=== PATIENT | male | born 1940 | race Caucasian/White ===

== ENCOUNTER 2019-06-18 11:46 | Observation (INO) ==
[2019-06-18 12:04] LABS: Hemoglobin 13.7 g/dL (12.9-16.9); Mean Corpuscular HGB Conc 31.1 g/dL (31.6-35.5); Mean Corpuscular Hemoglobin 24.5 pg (28.0-33.3); Mean Corpuscular Volume 78.6 fL (83.0-100.0); Mean Platelet Volume 10.6 fL (9.4-12.4); Platelet Count 294 K/mcL (140-400); Red Cell Distribution Width 17.7 % (11.5-14.5); White Blood Count 7.9 K/mcL (4.3-11.1)
[2019-06-18 12:23] LABS: Alanine Aminotransferase 17 Units/L (7-52); Albumin/Globulin Ratio 1.3 (1.1-2.2); Alkaline Phosphatase 71 Units/L (34-104); Aspartate Amino Transferase 22 Units/L (13-39); BUN/Creatinine Ratio 15 (6-26); Bilirubin,Total 0.9 mg/dL (0.3-1.0); Blood Urea Nitrogen 22 mg/dL (8-23); Calcium 9.6 mg/dL (8.6-10.3); Carbon Dioxide 24 mEq/L (23-29); Chloride 106 mEq/L (98-107); Globulin 3.2 g/dL (2.4-3.5); Glucose 127 mg/dL (70-105); Osmolality,Calculated 289 (280-300); Potassium 3.9 mEq/L (3.5-5.1); Sodium 137 mEq/L (136-145); Total Protein 7.2 g/dL (6.4-8.9); Troponin I < 0.03 ng/mL (< 0.04); eGFR For African Americans 58 (> 60); eGFR For Non-African Americans 48 (> 60)
[2019-06-18] MEDS ORDERED: Aspirin 81 MG TAB.CHEW PO STA (12:23)
[2019-06-18 12:28] LABS: INR 1.2; Prothrombin Time 13.2 Seconds (9.4-12.1)
[2019-06-18 12:30] LABS: Activated Partial Thrombo Time 41.2 Seconds (26.0-36.0)
[2019-06-18 12:38] LABS: VBG HCO3 24 mEq/L (21-27); VBG PCO2 39 mmHg (41-51); VBG PH 7.39 pH Units (7.32-7.42); VBG PO2 127 mmHg (25-50)
[2019-06-18] MEDS ORDERED: Ringers Solution, Lactated 1,000 ML IVC SCH (14:45)
[2019-06-18] MEDS ORDERED: Naloxone 0.4 MG/ML INJ IVP PRN (14:45)
[2019-06-18] MEDS ORDERED: Nitroglycerin 0.4 MG TAB.SUBL SL PRN (14:49)
[2019-06-18] MEDS ORDERED: *HR* Metoprolol 5 MG/5 ML VIAL IVP PRN (14:49)
[2019-06-18] MEDS: cefTRIAXone 1,000 MG in Water for inj. (sterile) 10 ML IVP SCH (15:38)
[2019-06-18] MEDS: Azithromycin 250 MG TABLET PO SCH (15:38)
[2019-06-18] MEDS: Insulin LISPRO 300 UNITS/3 ML VIAL SQ SCH ×2 (16:34→21:35)
[2019-06-18] MEDS: Insulin DETEMIR 100 UNIT/ML X5UNITS SQ SCH (21:35)
[2019-06-19 01:59] LABS: Calcium 9.3 mg/dL (8.6-10.3); Troponin I 0.03 ng/mL (< 0.04)
[2019-06-19] MEDS ORDERED: PRAVASTATIN SODIUM 40 MG PO SCH (09:00)
[2019-06-19] MEDS ORDERED: *HR* Rivaroxaban 15 MG TABLET PO SCH (09:00)
[2019-06-19] MEDS ORDERED: Regadenoson 0.4 MG/5 ML SYRINGE IVP ONE (10:42)
[2019-06-19] MEDS: cefTRIAXone 1,000 MG in Water for inj. (sterile) 10 ML IVP SCH (11:45)
[2019-06-19] MEDS: lisinopriL 10 MG TABLET PO SCH (11:46)
[2019-06-19] MEDS: Azithromycin 250 MG TABLET PO SCH (11:46)
[2019-06-19] MEDS: Insulin LISPRO 300 UNITS/3 ML VIAL SQ SCH ×4 (11:46→20:45)
[2019-06-19] MEDS: Insulin DETEMIR 100 UNIT/ML X5UNITS SQ SCH ×2 (11:53→20:48)
[2019-06-19] MEDS: Aspirin 81 MG TAB.CHEW PO SCH (17:21)
[2019-06-20 03:25] LABS: BUN/Creatinine Ratio 18 (6-26); Blood Urea Nitrogen 23 mg/dL (8-23); Calcium 9.1 mg/dL (8.6-10.3); Carbon Dioxide 24 mEq/L (23-29); Chloride 107 mEq/L (98-107); Cholesterol 153 mg/dL (< 200); Glucose 140 mg/dL (70-105); HDL Cholesterol 38 mg/dL (40-59); LDL Cholesterol,Calculated 95 mg/dL (0-99); Osmolality,Calculated 288 (280-300); Sodium 136 mEq/L (136-145); Triglycerides 102 mg/dL (< 150); eGFR For African Americans > 60 (> 60); eGFR For Non-African Americans 55 (> 60)
[2019-06-20] MEDS: Insulin LISPRO 300 UNITS/3 ML VIAL SQ SCH ×2 (07:42→12:30)
[2019-06-20] MEDS: Insulin DETEMIR 100 UNIT/ML X5UNITS SQ SCH (08:50)
[2019-06-20] MEDS: cefTRIAXone 1,000 MG in Water for inj. (sterile) 10 ML IVP SCH (08:50)
[2019-06-20] MEDS: lisinopriL 10 MG TABLET PO SCH (08:50)
[2019-06-20] MEDS: Aspirin 81 MG TAB.CHEW PO SCH (08:50)
[2019-06-20] MEDS: Azithromycin 250 MG TABLET PO SCH (08:52)
[2019-06-20 11:30] VITALS: BP 139/64
[2019-06-20] MEDS ORDERED: *HR* Rivaroxaban 15 MG TABLET PO SCH (17:00)
[2019-06-21] MEDS ORDERED: Metoprolol XL (24 HR) Succ 25 MG TAB.ER.24H PO SCH (09:00)
== END 2019-06-20 18:34 | disposition home or self-care (01) ==
LOC: EMEROOARM 11:46 → 3BNU 11:46 → SUATTDRO 14:14 → 3BNU 14:55
PROVIDERS: ADMIT Family Medicine; ATTEND Student in an Organized Health Care Education/Training Program